=== PATIENT | male | born 1970 | race Caucasian/White ===

== ENCOUNTER 2021-01-09 03:11 | Inpatient (IN) | payer OTHER ==
[2021-01-09 03:34] VITALS: BMI 28.5
[2021-01-09] MEDS ORDERED: METHOCARBAMOL 500 MG TABLET PO PRN (04:01)
[2021-01-09] MEDS ORDERED: chlordiazePOXIDE HCL 25 MG CAPSULE PO PRN (04:01)
[2021-01-09] MEDS ORDERED: ACETAMINOPHEN 325 MG TABLET (FP) PO PRN ×2 (04:01)
[2021-01-09] MEDS ORDERED: MENTHOL/PHENOL 1 EACH UD MM PRN (04:01)
[2021-01-09] MEDS ORDERED: ONDANSETRON *ODT* 4 MG TABLET SL PRN (04:01)
[2021-01-09] MEDS ORDERED: BISMUTH SUBSALICYLATE 524 MG/30 ML UD PO PRN (04:01)
[2021-01-09] MEDS ORDERED: MAGNESIUM HYDROX 2400MG/30ML ORAL SUSPENSION 30 ML CUP PO PRN (04:01)
[2021-01-09] MEDS ORDERED: IBUPROFEN 400 MG TABLET (FP) PO PRN (04:01)
[2021-01-09] MEDS ORDERED: MAGNESIUM CITRATE 300 ML BOTTLE PO PRN (04:01)
[2021-01-09] MEDS ORDERED: MAG HYDROX/AL HYDROX/SIMETH 30 ML UNIT-DOSE CUP PO PRN (04:01)
[2021-01-09] MEDS: chlordiazePOXIDE HCL 25 MG CAPSULE PO SCH ×4 (04:18→22:04)
[2021-01-09] MEDS ORDERED: INSULIN (NOVOLOG) ASPART 100 UNITS/ML 10ML VIAL SQ ONE (05:45)
[2021-01-09] MEDS: PRENATAL VITAMINS W/ FOLIC ACID TABLET (FP) PO SCH (10:41)
[2021-01-09 13:39] LABS: POTASSIUM 3.8 mmol/L (3.5-5.1)
[2021-01-09 13:41] LABS: ALBUMIN 3.7 g/dl (3.4-5.0); BLOOD UREA NITROGEN 10.7 mg/dL (7-18); CALCIUM 8.8 mg/dL (8.5-10.1)
[2021-01-09 13:43] LABS: HEMATOCRIT 40.9 % (35.4-49); HEMOGLOBIN 13.6 GM/dL (11.7-16.9); MCHC 33.3 g/dl (32.0-35.9); MEAN CELL VOLUME 89.9 fl (80-96); MEAN PLT VOLUME 7.9 fl (7.5-11.1); PLATELET COUNT 166 K/MM3 (134-434); RBC 4.55 M/mm3 (4.00-5.60); RDW 13.5 % (11.9-15.9); WHITE BLOOD COUNT 5.8 K/mm3 (4.0-10.0)
[2021-01-09 13:44] LABS: CREATININE 0.7 mg/dL (0.55-1.3)
[2021-01-09 13:46] LABS: BILIRUBIN,TOTAL 0.3 mg/dL (0.2-1); TOT PROT 7.6 g/dl (6.4-8.2)
[2021-01-09] MEDS: HYDROCORTISONE 1% TOPICAL CREAM 30 GM TUBE TP SCH ×3 (14:13→22:04)
[2021-01-09] MEDS: amLODIPine BESYLATE 5 MG TABLET (FP) PO SCH (15:34)
[2021-01-09] MEDS ORDERED: INSULIN SLIDING SCALE (NOVOLOG) 1 VIAL SQ SCH (16:30)
[2021-01-09] MEDS: INSULIN SLIDING SCALE (NOVOLOG) 1 VIAL SQ SCH (17:45)
[2021-01-09] MEDS ORDERED: cloNIDine HCL 0.1 MG TABLET PO ONE (18:53)
[2021-01-09] MEDS: THIAMINE HCL 100 MG TABLET (FP) PO SCH (22:03)
[2021-01-09] MEDS: MELATONIN 5 MG TABLETS PO SCH (22:03)
[2021-01-10] MEDS: chlordiazePOXIDE HCL 25 MG CAPSULE PO SCH ×4 (05:40→22:13)
[2021-01-10] MEDS: INSULIN SLIDING SCALE (NOVOLOG) 1 VIAL SQ SCH ×2 (07:54→17:33)
[2021-01-10] MEDS: PRENATAL VITAMINS W/ FOLIC ACID TABLET (FP) PO SCH (10:11)
[2021-01-10] MEDS: amLODIPine BESYLATE 5 MG TABLET (FP) PO SCH (10:11)
[2021-01-10] MEDS: HYDROCORTISONE 1% TOPICAL CREAM 30 GM TUBE TP SCH ×4 (10:11→22:51)
[2021-01-10 11:23] LABS: ALBUMIN 3.3 g/dl (3.4-5.0)
[2021-01-10 11:24] LABS: BLOOD UREA NITROGEN 11.2 mg/dL (7-18); CALCIUM 9.1 mg/dL (8.5-10.1)
[2021-01-10 11:27] LABS: CREATININE 0.7 mg/dL (0.55-1.3)
[2021-01-10 11:28] LABS: TOT PROT 7.1 g/dl (6.4-8.2)
[2021-01-10 11:32] LABS: BILIRUBIN,TOTAL 1.5 mg/dL (0.2-1)
[2021-01-10] MEDS: DAPAGLIFLOZIN PROPANEDIOL 5 MG TABLET PO SCH (14:32)
[2021-01-10] MEDS: CLINDAMYCIN PHOSPHATE 1% TOPICAL SOLUTION 30 ML BOTTLE TP SCH ×2 (15:29→22:51)
[2021-01-10] MEDS: DORZOLAMIDE 2% HCL OPHTHALMIC SOLUTION 10 ML BOTTLE OU SCH ×2 (15:30→22:11)
[2021-01-10] MEDS ORDERED: LISINOPRIL 10 MG TABLET PO ONE (17:45)
[2021-01-10] MEDS: TIMOLOL 0.25% OPHTHALMIC SOL 5 ML BOTTLE OU SCH (22:12)
[2021-01-10] MEDS: THIAMINE HCL 100 MG TABLET (FP) PO SCH (22:12)
[2021-01-10] MEDS: LISINOPRIL 10 MG TABLET PO SCH (22:12)
[2021-01-10] MEDS: MELATONIN 5 MG TABLETS PO SCH (22:12)
[2021-01-11] MEDS ORDERED: chlordiazePOXIDE HCL 10 MG CAPSULE PO PRN
[2021-01-11] MEDS: chlordiazePOXIDE HCL 10 MG CAPSULE PO SCH ×4 (05:57→22:08)
[2021-01-11] MEDS: DORZOLAMIDE 2% HCL OPHTHALMIC SOLUTION 10 ML BOTTLE OU SCH ×3 (05:57→22:08)
[2021-01-11] MEDS: INSULIN SLIDING SCALE (NOVOLOG) 1 VIAL SQ SCH ×2 (06:00→17:50)
[2021-01-11] MEDS: DAPAGLIFLOZIN PROPANEDIOL 5 MG TABLET PO SCH (10:13)
[2021-01-11] MEDS: PRENATAL VITAMINS W/ FOLIC ACID TABLET (FP) PO SCH (10:13)
[2021-01-11] MEDS: TIMOLOL 0.25% OPHTHALMIC SOL 5 ML BOTTLE OU SCH ×2 (10:14→22:08)
[2021-01-11] MEDS: amLODIPine BESYLATE 5 MG TABLET (FP) PO SCH (10:14)
[2021-01-11] MEDS: HYDROCORTISONE 1% TOPICAL CREAM 30 GM TUBE TP SCH ×4 (10:14→22:08)
[2021-01-11] MEDS: LISINOPRIL 10 MG TABLET PO SCH ×2 (10:15→22:08)
[2021-01-11] MEDS: CLINDAMYCIN PHOSPHATE 1% TOPICAL SOLUTION 30 ML BOTTLE TP SCH ×2 (10:15→22:12)
[2021-01-11] MEDS: THIAMINE HCL 100 MG TABLET (FP) PO SCH (22:08)
[2021-01-11] MEDS: MELATONIN 5 MG TABLETS PO SCH (22:08)
[2021-01-12] MEDS: chlordiazePOXIDE HCL 10 MG CAPSULE PO SCH ×2 (05:51→16:51)
[2021-01-12] MEDS: DORZOLAMIDE 2% HCL OPHTHALMIC SOLUTION 10 ML BOTTLE OU SCH ×3 (05:52→22:28)
[2021-01-12] MEDS: INSULIN SLIDING SCALE (NOVOLOG) 1 VIAL SQ SCH ×2 (07:14→16:51)
[2021-01-12] MEDS: PRENATAL VITAMINS W/ FOLIC ACID TABLET (FP) PO SCH (09:56)
[2021-01-12] MEDS: LISINOPRIL 10 MG TABLET PO SCH ×2 (09:56→22:27)
[2021-01-12] MEDS: CLINDAMYCIN PHOSPHATE 1% TOPICAL SOLUTION 30 ML BOTTLE TP SCH ×2 (09:56→22:28)
[2021-01-12] MEDS: amLODIPine BESYLATE 5 MG TABLET (FP) PO SCH (09:56)
[2021-01-12] MEDS: TIMOLOL 0.25% OPHTHALMIC SOL 5 ML BOTTLE OU SCH ×2 (09:57→22:27)
[2021-01-12] MEDS: HYDROCORTISONE 1% TOPICAL CREAM 30 GM TUBE TP SCH ×4 (09:57→22:28)
[2021-01-12] MEDS: DAPAGLIFLOZIN PROPANEDIOL 5 MG TABLET PO SCH (14:11)
[2021-01-12] MEDS: MELATONIN 5 MG TABLETS PO SCH (22:27)
[2021-01-12] MEDS: THIAMINE HCL 100 MG TABLET (FP) PO SCH (22:29)
[2021-01-13] MEDS ORDERED: chlordiazePOXIDE HCL 10 MG CAPSULE PO ONE (05:00)
[2021-01-13] MEDS: DORZOLAMIDE 2% HCL OPHTHALMIC SOLUTION 10 ML BOTTLE OU SCH (06:36)
[2021-01-13] MEDS: INSULIN SLIDING SCALE (NOVOLOG) 1 VIAL SQ SCH (06:53)
[2021-01-13 09:29] VITALS: BP 110/68; PULSE 68; TEMP 96.8
[2021-01-13] MEDS: DAPAGLIFLOZIN PROPANEDIOL 5 MG TABLET PO SCH (11:19)
[2021-01-13] MEDS: CLINDAMYCIN PHOSPHATE 1% TOPICAL SOLUTION 30 ML BOTTLE TP SCH (11:19)
[2021-01-13] MEDS: TIMOLOL 0.25% OPHTHALMIC SOL 5 ML BOTTLE OU SCH (11:20)
[2021-01-13] MEDS: HYDROCORTISONE 1% TOPICAL CREAM 30 GM TUBE TP SCH (11:20)
[2021-01-13] MEDS: PRENATAL VITAMINS W/ FOLIC ACID TABLET (FP) PO SCH (11:20)
[2021-01-13] MEDS: LISINOPRIL 10 MG TABLET PO SCH (11:20)
[2021-01-13] MEDS: amLODIPine BESYLATE 5 MG TABLET (FP) PO SCH (11:20)
== END 2021-01-13 10:07 | disposition other institution (70) | DRG 775 ==
LOC: YASAS 03:11 → Y3N 07:21
PROVIDERS: ADMIT Allergy & Immunology; ATTEND Allergy & Immunology
PROC: HZ2ZZZZ Detoxification Services for Substance Abuse Treatment (ICD-10-PCS; principal; 2021-01-09)
DX: F10.230 Alcohol dependence with withdrawal, uncomplicated (principal); F10.24 Alcohol dependence with alcohol-induced mood disorder; F10.282 Alcohol dependence with alcohol-induced sleep disorder; I10 Essential (primary) hypertension; E11.9 Type 2 diabetes mellitus without complications; Z79.84 Long term (current) use of oral hypoglycemic drugs; H91.91 Unspecified hearing loss, right ear; H40.9 Unspecified glaucoma; K57.30 Diverticulosis of large intestine without perforation or abscess without bleeding; L71.9 Rosacea, unspecified; R94.5 Abnormal results of liver function studies
CPT/HCPCS: 36415; 80053; 82962; 85027; 86780; 93005; 93010; C9803; J0735; U0003

== ENCOUNTER 2023-01-17 12:27 | Emergency (ER) | payer OTHER ==
[2023-01-17 12:38] VITALS: BP 112/78; PULSE 94; RESP 20; TEMP 97.7; BMI 26.4
[2023-01-17] MEDS ORDERED: LORazepam 2 MG TABLET PO ONE (13:10)
[2023-01-17] MEDS ORDERED: LORazepam 1 MG TABLET ONE (13:12)
== END 2023-01-17 13:30 | disposition home or self-care (01) ==
LOC: JER 12:27
DX: F10.10 Alcohol abuse, uncomplicated (principal); Y90.9 Presence of alcohol in blood, level not specified
CPT/HCPCS: 82962; 99283-25

== ENCOUNTER 2024-07-02 08:37 | Inpatient (IN) | payer OTHER ==
[2024-07-02 09:18] VITALS: BMI 24.4
[2024-07-02] MEDS ORDERED: NALOXONE (NARCAN) HCL 4 MG/0.1 ML SPRAY NS PRN (10:12)
[2024-07-02] MEDS ORDERED: BENZONATATE 200 MG CAPSULE PO PRN (10:12)
[2024-07-02] MEDS ORDERED: ONDANSETRON *ODT* 4 MG TABLET SL PRN (10:12)
[2024-07-02] MEDS ORDERED: BENZOCAINE/MENTHOL (CHLORASEPTIC ) LOZENGE MM PRN (10:12)
[2024-07-02] MEDS ORDERED: POLYETHYLENE GLYCOL (HEALTHYLAX) 3350 17 GM PACKET PO PRN (10:12)
[2024-07-02] MEDS ORDERED: NALOXONE HCL 0.4 MG/ML VIAL IM PRN (10:12)
[2024-07-02] MEDS ORDERED: MAG HYDROX/AL HYDROX/SIMETH 30 ML UNIT-DOSE CUP PO PRN (10:12)
[2024-07-02] MEDS ORDERED: LOPERAMIDE HCL 2 MG CAPSULE PO PRN (10:12)
[2024-07-02] MEDS ORDERED: guaiFENesin 600 MG TABLET.ER (FP) PO PRN (10:12)
[2024-07-02] MEDS ORDERED: IBUPROFEN 600 MG TABLET (FP) PO PRN (10:12)
[2024-07-02] MEDS ORDERED: DICYCLOMINE HCL 10 MG CAPSULE PO PRN (10:12)
[2024-07-02] MEDS ORDERED: MAGNESIUM HYDROX 2400MG/30ML ORAL SUSPENSION 30 ML CUP PO PRN (10:12)
[2024-07-02] MEDS ORDERED: IBUPROFEN 400 MG TABLET (FP) PO PRN (10:12)
[2024-07-02] MEDS: chlordiazePOXIDE HCL 25 MG CAPSULE PO PRN (10:35)
[2024-07-02] MEDS ORDERED: chlordiazePOXIDE HCL 25 MG CAPSULE ONE (10:38)
[2024-07-02] MEDS ORDERED: PATIENT'S OWN MEDICATION (NON-FORMULARY) (Prednisolone Acetate/Pf [Prednisolone Acet 1% Ey OP SCH (16:00)
[2024-07-02] MEDS: INSULIN ASPART SLIDING SCALE (NOVOLOG) 1 VIAL SQ SCH (16:52)
[2024-07-02] MEDS: prednisoLONE ACETATE 1% OPHTH SUSP 5 ML BOTTLE OS SCH (16:53)
[2024-07-02] MEDS ORDERED: PATIENT'S OWN MEDICATION (NON-FORMULARY) (Timolol Maleate/Pf [Timolol Maleate 0.5% Eye Dro OP SCH (18:00)
[2024-07-02] MEDS: BRIMONIDINE TARTRATE 0.2% OPHTHALMIC 5 ML BOTTLE OU SCH (18:30)
[2024-07-02] MEDS: chlordiazePOXIDE HCL 25 MG CAPSULE PO SCH (18:42)
[2024-07-02] MEDS: TIMOLOL 0.5% OPHTHALMIC SOL 5 ML BOTTLE OU SCH (18:43)
[2024-07-02] MEDS: METOPROLOL TARTRATE 25 MG TABLET (FP) PO ONE (19:40)
[2024-07-02] MEDS: MELATONIN 5 MG TABLETS PO SCH (22:04)
[2024-07-02] MEDS: ATORVASTATIN CA 20 MG TABLET (FP) PO SCH (22:05)
[2024-07-02] MEDS: THIAMINE 100 MG TABLET PO SCH (22:05)
[2024-07-03] MEDS: cloNIDine HCL 0.1 MG TABLET PO ONE (00:37)
[2024-07-03] MEDS: ACETAMINOPHEN 325 MG TABLET (FP) PO PRN (00:38)
[2024-07-03] MEDS: METHOCARBAMOL 500 MG TABLET PO PRN (00:38)
[2024-07-03 09:05] LABS: CHLORIDE 102 mmol/L (98-107); POTASSIUM 3.5 mmol/L (3.5-5.1); SODIUM 137 mmol/L (136-145)
[2024-07-03 09:07] LABS: CALCIUM 9.4 mg/dL (8.5-10.1)
[2024-07-03 09:08] LABS: ALBUMIN 3.9 g/dl (3.4-5.0); ANION GAP 9 mmol/L (4-13); BLOOD UREA NITROGEN 10.1 mg/dL (7-18); CO2 27 mmol/L (21-32); GLUCOSE,RANDOM 131 mg/dL (74-106)
[2024-07-03 09:10] LABS: HEMATOCRIT 38.7 % (35.4-49); HEMOGLOBIN 12.8 GM/dL (11.7-16.9); MCH 28.1 pg (25.7-33.7); MCHC 33.2 g/dl (32.0-35.9); MEAN CELL VOLUME 84.7 fl (80-96); MEAN PLT VOLUME 7.2 fl (7.5-11.1); PLATELET COUNT 205 10^3/uL (134-434); RBC 4.56 M/mm3 (4.00-5.60); WHITE BLOOD COUNT 6.5 K/mm3 (4.0-10.0)
[2024-07-03 09:11] LABS: CREATININE 0.6 mg/dL (0.55-1.3); SGOT/AST 17 U/L (15-37); SGPT/ALT 19 U/L (13-61)
[2024-07-03 09:13] LABS: TOT PROT 7.4 g/dl (6.4-8.2)
[2024-07-03 09:14] LABS: ALK PHOS 105 U/L (45-117)
[2024-07-03 09:16] LABS: BILIRUBIN,TOTAL 1.7 mg/dL (0.2-1)
[2024-07-03] MEDS: LISINOPRIL 20 MG TABLET PO SCH (10:13)
[2024-07-03] MEDS: PRENATAL VITAMINS W/ FOLIC ACID TABLET (FP) PO SCH (10:16)
[2024-07-03] MEDS: prednisoLONE ACETATE 1% OPHTH SUSP 5 ML BOTTLE OS SCH (13:03)
[2024-07-04] MEDS: chlordiazePOXIDE HCL 25 MG CAPSULE PO SCH (05:02)
[2024-07-04] MEDS: EMPAGLIFLOZIN (JARDIANCE) 25 MG TABLET PO SCH (10:38)
[2024-07-04] MEDS: LISINOPRIL 10 MG TABLET PO SCH (14:31)
[2024-07-04] MEDS: BISMUTH SUBSALICYLATE 524 MG/30 ML PO PRN (19:45)
[2024-07-05] MEDS ORDERED: chlordiazePOXIDE HCL 10 MG CAPSULE PO PRN
[2024-07-05] MEDS: chlordiazePOXIDE HCL 10 MG CAPSULE PO SCH (05:54)
[2024-07-05] MEDS: amLODIPine BESYLATE 5 MG TABLET (FP) PO SCH (10:09)
[2024-07-05] MEDS: HYDROCHLOROTHIAZIDE 25 MG TABLET (FP) PO SCH (13:16)
[2024-07-06] MEDS: chlordiazePOXIDE HCL 10 MG CAPSULE PO SCH (05:35)
[2024-07-06 20:48] VITALS: RESP 16
[2024-07-07] MEDS: chlordiazePOXIDE HCL 10 MG CAPSULE PO ONE (05:51)
[2024-07-07 06:48] VITALS: TEMP 97.1
[2024-07-07 08:56] VITALS: BP 146/88; PULSE 78
== END 2024-07-07 10:42 | disposition home or self-care (01) | DRG 775 ==
LOC: YASAS 08:37 → Y6N 10:19
PROVIDERS: ADMIT Allergy & Immunology; ATTEND Surgery
PROC: HZ2ZZZZ Detoxification Services for Substance Abuse Treatment (ICD-10-PCS; principal; 2024-07-02)
DX: F10.230 Alcohol dependence with withdrawal, uncomplicated (principal); I10 Essential (primary) hypertension; E11.9 Type 2 diabetes mellitus without complications; E78.5 Hyperlipidemia, unspecified; H40.9 Unspecified glaucoma; H91.91 Unspecified hearing loss, right ear; L71.9 Rosacea, unspecified; M41.9 Scoliosis, unspecified; Z79.84 Long term (current) use of oral hypoglycemic drugs; Z56.0 Unemployment, unspecified
CPT/HCPCS: 36415; 80053; 80305; 80307; 82962; 85027; 86780; 86803; 93005; 93010

== ENCOUNTER 2024-07-07 20:01 | Inpatient (IN) | payer OTHER ==
[2024-07-07 20:31] VITALS: BMI 24.4
[2024-07-07] MEDS ORDERED: POLYETHYLENE GLYCOL (HEALTHYLAX) 3350 17 GM PACKET PO PRN (20:41)
[2024-07-07] MEDS ORDERED: BENZONATATE 200 MG CAPSULE PO PRN (20:41)
[2024-07-07] MEDS ORDERED: ACETAMINOPHEN 325 MG TABLET (FP) PO PRN (20:41)
[2024-07-07] MEDS ORDERED: IBUPROFEN 600 MG TABLET (FP) PO PRN (20:41)
[2024-07-07] MEDS ORDERED: LOPERAMIDE HCL 2 MG CAPSULE PO PRN (20:41)
[2024-07-07] MEDS ORDERED: guaiFENesin 600 MG TABLET.ER (FP) PO PRN (20:41)
[2024-07-07] MEDS ORDERED: BENZOCAINE/MENTHOL (CHLORASEPTIC ) LOZENGE MM PRN (20:41)
[2024-07-07] MEDS ORDERED: MAG HYDROX/AL HYDROX/SIMETH 30 ML UNIT-DOSE CUP PO PRN (20:41)
[2024-07-07] MEDS ORDERED: IBUPROFEN 400 MG TABLET (FP) PO PRN (20:41)
[2024-07-07] MEDS: MELATONIN 5 MG TABLETS PO SCH (23:43)
[2024-07-07] MEDS: THIAMINE 100 MG TABLET PO SCH (23:43)
[2024-07-07] MEDS: ATORVASTATIN CA 20 MG TABLET (FP) PO SCH (23:43)
[2024-07-07] MEDS: TIMOLOL 0.5% OPHTHALMIC SOL 5 ML BOTTLE OU SCH (23:44)
[2024-07-07] MEDS: prednisoLONE ACETATE 1% OPHTH SUSP 5 ML BOTTLE OU SCH (23:58)
[2024-07-07] MEDS: BRIMONIDINE TARTRATE 0.2% OPHTHALMIC 5 ML BOTTLE OU SCH (23:58)
[2024-07-08] MEDS: EMPAGLIFLOZIN (JARDIANCE) 25 MG TABLET PO SCH (07:40)
[2024-07-08] MEDS: amLODIPine BESYLATE 5 MG TABLET (FP) PO SCH (10:13)
[2024-07-08] MEDS: FOLIC ACID 1 MG TABLET (FP) PO SCH (10:13)
[2024-07-08] MEDS: LISINOPRIL 20 MG TABLET PO SCH (10:13)
[2024-07-08] MEDS: PRENATAL VITAMINS W/ FOLIC ACID TABLET (FP) PO SCH (10:14)
[2024-07-08] MEDS: ERGOCALCIFEROL (VIT D2) 50,000 UNIT (1.25 MG) CAPSULE PO SCH (11:20)
[2024-07-08] MEDS: prednisoLONE ACETATE 1% OPHTH SUSP 5 ML BOTTLE OS SCH (12:31)
[2024-07-09] MEDS: MAGNESIUM HYDROX 2400MG/30ML ORAL SUSPENSION 30 ML CUP PO PRN (19:09)
[2024-07-09] MEDS: METHOCARBAMOL 500 MG TABLET PO PRN (21:20)
[2024-07-10] MEDS: hydrOXYzine PAMOATE 25 MG CAPSULE (FP) PO PRN (04:22)
[2024-07-11] MEDS: prednisoLONE ACETATE 1% OPHTH SUSP 5 ML BOTTLE OS SCH (18:32)
[2024-07-11] MEDS: BRIMONIDINE TARTRATE 0.2% OPHTHALMIC 5 ML BOTTLE OU SCH (18:32)
[2024-07-11] MEDS: TIMOLOL 0.5% OPHTHALMIC SOL 5 ML BOTTLE OU SCH (18:33)
[2024-07-14] MEDS: LISINOPRIL 10 MG TABLET PO SCH (10:09)
[2024-07-14] MEDS: diphenhydrAMINE HCL 25 MG CAPSULE (FP) PO PRN (13:20)
[2024-07-14] MEDS: CALAMINE 8% TOPICAL LOTION 177 ML BOTTLE TP PRN (15:36)
[2024-07-15] MEDS: CEPHALEXIN MONOHYDRATE 500 MG CAPSULE (UD) PO SCH (06:42)
[2024-07-15] MEDS: SULFAMETHOXAZOLE/TRIMETHOPRIM 800MG/160MG D.S. TABLET PO SCH (10:39)
[2024-07-15] MEDS: METHOCARBAMOL 500 MG TABLET PO PRN (18:24)
[2024-07-18] MEDS: CLINDAMYCIN PHOSPHATE 1% TOPICAL GEL 30 GM TUBE TP SCH (21:55)
[2024-07-22] MEDS: EMPAGLIFLOZIN (JARDIANCE) 25 MG TABLET PO SCH (06:44)
[2024-07-22 06:58] VITALS: RESP 18; TEMP 97.8
[2024-07-22 09:33] VITALS: BP 116/76; PULSE 79
== END 2024-07-22 10:00 | disposition home or self-care (01) | DRG 772 ==
LOC: YASAS 20:01 → Y3E 22:21 → Y5N 07-19 20:17
PROVIDERS: ADMIT Allergy & Immunology; ATTEND Psychiatry & Neurology Pain Medicine
PROC: HZ42ZZZ Group Counseling for Substance Abuse Treatment, Cognitive-Behavioral (ICD-10-PCS; principal; 2024-07-07)
DX: F10.20 Alcohol dependence, uncomplicated (principal); H91.91 Unspecified hearing loss, right ear; I10 Essential (primary) hypertension; E78.5 Hyperlipidemia, unspecified; E11.9 Type 2 diabetes mellitus without complications; Z79.84 Long term (current) use of oral hypoglycemic drugs; M54.50 Low back pain, unspecified; G89.29 Other chronic pain; Z98.890 Other specified postprocedural states; S50.861A Insect bite (nonvenomous) of right forearm, initial encounter; S00.86XA Insect bite (nonvenomous) of other part of head, initial encounter; W57.XXXA Bitten or stung by nonvenomous insect and other nonvenomous arthropods, initial encounter; Y92.230 Patient room in hospital as the place of occurrence of the external cause
CPT/HCPCS: 80305; 80307; 82962

== ENCOUNTER 2024-07-14 22:00 | Emergency (ER) | payer OTHER ==
[2024-07-14 22:08] VITALS: BP 145/84; PULSE 77; RESP 18; TEMP 98.9; BMI 24.4
[2024-07-14] MEDS ORDERED: SULFAMETHOXAZOLE/TRIMETHOPRIM 800MG/160MG D.S. TABLET ONE (23:06)
[2024-07-14] MEDS ORDERED: CEPHALEXIN MONOHYDRATE 500 MG CAPSULE (UD) ONE (23:06)
[2024-07-14] MEDS ORDERED: KETOROLAC TROMETHAMINE 15 MG/ML VIAL ONE (23:07)
[2024-07-14] MEDS: CEPHALEXIN MONOHYDRATE 500 MG CAPSULE (UD) PO ONE (23:22)
[2024-07-14] MEDS: SULFAMETHOXAZOLE/TRIMETHOPRIM 800MG/160MG D.S. TABLET PO ONE (23:22)
[2024-07-14] MEDS: KETOROLAC TROMETHAMINE 30 MG/1 ML VIAL IM ONE (23:22)
[2024-07-14 23:48] LABS: BASO % 0.9 % (0-2.0); EOS % 1.9 % (0-4.5); HEMATOCRIT 40.1 % (35.4-49); HEMOGLOBIN 13.3 GM/dL (11.7-16.9); LYMPH % 26.7 % (8-40); MCH 28.5 pg (25.7-33.7); MCHC 33.3 g/dl (32.0-35.9); MEAN CELL VOLUME 85.6 fl (80-96); MEAN PLT VOLUME 7.8 fl (7.5-11.1); MONO % 11.3 % (3.8-10.2); NEUT % 59.2 % (42.8-82.8); PLATELET COUNT 264 10^3/uL (134-434); RBC 4.68 M/mm3 (4.00-5.60); WHITE BLOOD COUNT 7.5 K/mm3 (4.0-10.0)
[2024-07-15 00:06] LABS: POTASSIUM 3.9 mmol/L (3.5-5.1)
[2024-07-15 00:08] LABS: CALCIUM 9.8 mg/dL (8.5-10.1)
[2024-07-15 00:09] LABS: ALBUMIN 4.4 g/dl (3.4-5.0)
[2024-07-15 00:12] LABS: CREATININE 0.7 mg/dL (0.55-1.3)
[2024-07-15 00:13] LABS: BILIRUBIN,TOTAL 0.4 mg/dL (0.2-1); TOT PROT 8.3 g/dl (6.4-8.2)
[2024-07-15 00:47] LABS: ERYTHROCYTE SEDIMENTATION RATE 15 mm/hr (0-20)
== END 2024-07-15 01:13 ==
LOC: JER 22:00
PROC: 3E0133Z Introduction of Anti-inflammatory into Subcutaneous Tissue, Percutaneous Approach (ICD-10-PCS; principal; 2024-07-14)
DX: S50.861A Insect bite (nonvenomous) of right forearm, initial encounter (principal); L03.113 Cellulitis of right upper limb; W57.XXXA Bitten or stung by nonvenomous insect and other nonvenomous arthropods, initial encounter
CPT/HCPCS: 36415; 76882-TC-RT; 80053; 85025; 85651; 86140; 99284-25